=== PATIENT | male | born 1965 | race Caucasian/White ===

== ENCOUNTER 2018-09-06 05:59 | Day surgery (SDC) | payer BC ==
[2018-09-06] MEDS ORDERED: Ketamine HCl 50 MG/ML IJ ONE (06:00)
[2018-09-06] MEDS ORDERED: DIPRIVAN 200 MG/20 ML IV ONE (06:00)
[2018-09-06] MEDS ORDERED: Lactated Ringers 1,000 ML IV SCH (06:30)
[2018-09-06 08:14] VITALS: BP 143/81; PULSE 52; O2SAT 98
--- NOTE | 2018-09-06 12:52 | OP ---
SURGERY DATE/TIME: 09/06/2018 0700 PREOPERATIVE DIAGNOSIS: History of colon polyps. POSTOPERATIVE DIAGNOSIS: Normal colon. PROCEDURE: Colonoscopy. SURGEON: Dr. Hermosillo. ANESTHESIA: MAC. Medications given by anesthesia department. HISTORY: The patient is a 53 year-old white male presenting now for his second colonoscopy. He had one five years ago at which time a polyp was removed. The patient was reappraised of the risks of the procedure including the risk of perforation, phlebitis, untoward reaction to medication, bleeding and missed lesions. The patient verbalized his understanding and desired to have the procedure performed. DESCRIPTION OF PROCEDURE: The patient was given the medications by the anesthesia department. He had continuous pulse oximetry, ECG monitoring, intermittent blood pressure monitoring and tidal CO2 monitoring during the examination. He was placed in the left lateral decubitus position. A digital rectal examination was performed and revealed normal anal sphincter tone, no masses and normal prostate. The flexible Olympus pediatric colonoscope was used to intubate the rectum. A view of the colon was developed sequentially to the cecum. Upon insertion and withdrawal, including a retroflex view in the rectum, no mucosal lesions were encountered. The scope was removed from the patient who tolerated the procedure well and was sent back to OP recovery in good condition. The prep was noted to be fair to good.
== END 2018-09-06 08:12 | disposition home or self-care (01) ==
LOC: SDC 05:59
PROVIDERS: ATTEND Family Medicine
DX: Z12.11 Encounter for screening for malignant neoplasm of colon (principal); Z86.010 Personal history of colon polyps
CPT/HCPCS: J2704

== ENCOUNTER 2024-05-14 09:08 | Emergency (ER) | payer BC ==
--- NOTE | 2024-05-14 09:10 | ERPHSYRPT ---
- History of Present Illness Time Seen by Provider: 05/14/24 09:10 Historian: patient, family Exam Limitations: no limitations Physician History: This is a 59-year-old white male patient who presents by private vehicle accompanied by his spouse with sudden onset of left lower quadrant abdominal pain which radiates into his left groin. +/- Left flank pain. No associated nausea vomiting or diarrhea. Patient denies chest pain. Patient denies fever. Patient denies shortness of breath. Patient has never had this symptom before. He has had no prior history of abdominal surgeries. He has had a colonoscopy in the past. Patient has a history of hypothyroidism, hypertension and hyperlipidemia. Timing/Duration: today Activities at Onset: none Quality: sharpness, stabbing Abdominal Pain Onset Location: LLQ Pain Radiation: flank (+/- Left flank), groin (Groin) Severity of Pain-Max: moderate Severity of Pain-Current: moderate Modifying Factors: Improves With: nothing Associated Symptoms: denies symptoms Previous symptoms: no prior history, no recent treatment Allergies/Adverse Reactions: No Known Drug Allergies Allergy (Verified 05/14/24 09:12) Home Medications: Atorvastatin Calcium [Lipitor] 80 mg PO HS 09/01/18 [History] Levothyroxine Sodium [Synthroid] 50 mcg PO DAILY 09/01/18 [History] Metoprolol Tartrate [Lopressor] 100 mg PO DAILY 09/01/18 [History] Ezetimibe 10 mg [Zetia 10 MG] 10 mg PO DAILY 05/14/24 [History] Travel Risk - International Travel Have you traveled outside of the country in past 3 weeks: No - Emerging Infectious Disease Are you exhibiting symptoms associated with any current EIDs: No - Review of Systems Constitutional: No Symptoms Eyes: No Symptoms Ears, Nose, & Throat: No Symptoms Respiratory: No Symptoms Cardiac: No Symptoms Abdominal/Gastrointestinal: Abdominal Pain (Lower quadrant), No Nausea, No Vomiting, No Diarrhea, No Constipation Genitourinary Symptoms: Flank Pain (+/- Left flank pain), Other (Left lower quadrant pain radiates into the left groin) Musculoskeletal: No Symptoms Skin: No Symptoms Neurological: No Symptoms Psychological: No Symptoms Endocrine: No Symptoms Hematologic/Lymphatic: No Symptoms Immunological/Allergic: No Symptoms All Other Systems: Reviewed and Negative - Past Medical History Pertinent Past Medical History: Yes Neurological History: No Pertinent History ENT History: No Pertinent History Cardiac History: No Pertinent History Respiratory History: No Pertinent History Endocrine Medical History: Hypothyroidism Musculoskeletal History: No Pertinent History GI Medical History: No Pertinent History History: No Pertinent History Psycho-Social History: No Pertinent History Male Reproductive Disorders: No Pertinent History - Past Surgical History Past Surgical History: Yes Neuro Surgical History: No Pertinent History Cardiac: No Pertinent History Respiratory: No Pertinent History Gastrointestinal: No Pertinent History Genitourinary: No Pertinent History Musculoskeletal: No Pertinent History Male Surgical History: No Pertinent History Other Surgical History: Colonoscopy - Social History Smoking Status: Former smoker Exposure to second hand smoke: No Drug Use: none - Nursing Vital Signs Nursing Vital Signs: Initial Vital Signs Pulse Rate 56 L 05/14/24 09:17 Respiratory Rate 16 05/14/24 09:17 Blood Pressure 162/94 05/14/24 09:17 O2 Sat by Pulse Oximetry 100 05/14/24 09:17 Pain Scale Pain Intensity 10 - Physical Exam General Appearance: mild distress, alert, anxiety Eye Exam: PERRL/EOMI, eyes nml inspection Ears, Nose, Throat Exam: normal ENT inspection, moist mucous membranes Neck Exam: normal inspection, non-tender, supple, full range of motion Respiratory Exam: normal breath sounds, lungs clear, airway intact, No chest tenderness, No respiratory distress Cardiovascular Exam: regular rate/rhythm, normal heart sounds, normal peripheral pulses Gastrointestinal/Abdomen Exam: soft, normal bowel sounds, tenderness (Left lower quadrant), guarding (Left lower quadrant to palpation) Rectal Exam: not done Back Exam: normal inspection, normal range of motion, CVA tenderness (Left flank pain), No vertebral tenderness Extremity Exam: normal inspection, normal range of motion, pelvis stable Neurologic Exam: alert, oriented x 3, cooperative, regional geodetic advisor II-XII nml as tested, nml cerebellar function, nml station & gait, sensation nml Skin Exam: normal color, warm Lymphatic Exam: No adenopathy SpO2 Interpretation: normal O2 Delivery: Room Air - Course Nursing assessment & vital signs reviewed: Yes Ordered Tests: Active Orders 24 hr Category Date Time Status IV Insertion STAT Care 05/14/24 09:21 Active ABDOMEN AND PELVIS W/0 CONTRAS [CT] Stat Exams 05/14/24 11:39 Completed AMYLASE Stat Lab 05/14/24 10:04 Completed CBC W DIFF Stat Lab 05/14/24 10:04 Completed CMP Stat Lab 05/14/24 10:04 Completed CULTURE,URINE Stat Lab 05/14/24 13:01 Received LIPASE Stat Lab 05/14/24 10:04 Completed UA W/RFX UR CULTURE Stat Lab 05/14/24 13:01 Completed Medication Summary Generic Name Dose Route Start Last Admin Trade Name Mariah PRN Reason Stop Dose Admin Sodium Chloride 1,000 mls @ 999 mls/hr 05/14/24 12:50 05/14/24 12:56 Sodium Chloride 0.9% 1000 Ml IV 05/14/24 13:50 999 mls/hr .Q1H1M STA Administration Discontinued Medications Generic Name Dose Route Start Last Admin Trade Name Mariah PRN Reason Stop Dose Admin Hydromorphone HCl 1 mg 05/14/24 09:21 05/14/24 09:27 Hydromorphone 1 Mg/1ml Inj IV 05/14/24 09:22 1 mg STAT ONE Administration Hydromorphone HCl Confirm 05/14/24 09:26 Hydromorphone 1 Mg/1ml Inj Administered 05/14/24 09:27 Dose 1 mg .ROUTE .STK-MED ONE Hydromorphone HCl 1 mg 05/14/24 11:58 05/14/24 12:01 Hydromorphone 1 Mg/1ml Inj IV 05/14/24 11:59 1 mg STAT ONE Administration Hydromorphone HCl Confirm 05/14/24 12:00 Hydromorphone 1 Mg/1ml Inj Administered 05/14/24 12:01 Dose 1 mg .ROUTE .STK-MED ONE Hydromorphone HCl 1 mg 05/14/24 13:11 05/14/24 13:16 Hydromorphone 1 Mg/1ml Inj IV 05/14/24 13:12 1 mg STAT ONE Administration Hydromorphone HCl Confirm 05/14/24 13:15 Hydromorphone 1 Mg/1ml Inj Administered 05/14/24 13:16 Dose 1 mg .ROUTE .STK-MED ONE Sodium Chloride Confirm 05/14/24 12:55 Sodium Chloride 0.9% 1000 Ml Administered 05/14/24 12:56 Dose 1,000 mls @ ud .ROUTE .STK-MED ONE Ketorolac Tromethamine 30 mg 05/14/24 09:21 05/14/24 09:27 Ketorolac Tromethamine 30 Mg/Ml Inj IV 05/14/24 09:22 30 mg STAT ONE Administration Ketorolac Tromethamine Confirm 05/14/24 09:26 Ketorolac Tromethamine 30 Mg/Ml Inj Administered 05/14/24 09:27 Dose 30 mg .ROUTE .STK-MED ONE Ondansetron HCl 4 mg 05/14/24 09:21 05/14/24 09:27 Ondansetron Hcl 4 Mg/2 Ml Vial IV 05/14/24 09:22 4 mg STAT ONE Administration Ondansetron HCl Confirm 05/14/24 09:26 Ondansetron Hcl 4 Mg/2 Ml Vial Administered 05/14/24 09:27 Dose 4 mg .ROUTE .STK-MED ONE Tamsulosin HCl 0.4 mg 05/14/24 12:58 05/14/24 13:03 Tamsulosin Hcl 0.4 Mg Cap PO 05/14/24 12:59 0.4 mg STAT ONE Administration Tamsulosin HCl Confirm 05/14/24 13:02 Tamsulosin Hcl 0.4 Mg Cap Administered 05/14/24 13:03 Dose 0.4 mg .ROUTE .STK-MED ONE Lab/Rad Data: Laboratory Result Diagrams 05/14/24 10:04 05/14/24 10:04 Laboratory Results 05/14/24 05/14/24 05/14/24 Range/Units 13:01 10:04 10:04 WBC 9.4 H (4.23-9.07) x10^3/uL RBC 4.89 (4.63-6.08) x10^6/uL Hgb 15.8 (13.7-17.5) g/dL Hct 46.9 (40.1-51.0) % MCV 95.9 H (79.0-92.2) fL MCH 32.3 H (25.7-32.2) pg MCHC 33.7 (32.3-36.5) g/dL RDW 11.9 (11.6-14.4) % Plt Count 181 (163-337) x10^3/uL MPV 10.7 (9.4-12.4) fL Gran % 86.6 H (34.0-67.9) % Immature Gran % (Auto) 0.4 (0.001-0.429) % Nucleat RBC Rel Count 0.0 (0.00-0.2) % Eos # (Auto) 0.06 (0.04-0.54) x10^3/uL Immature Gran # (Auto) 0.04 H (0.001-0.031) x10^3u/L Absolute Lymphs (auto) 0.68 L (1.32-3.57) x10^3/uL Absolute Monos (auto) 0.42 (0.30-0.82) x10^3/uL Absolute Nucleated RBC 0.00 (0.00-0.012) x10^3u/L Lymphocytes % 7.3 L (21.8-53.1) % Monocytes % 4.5 L (5.3-12.2) % Eosinophils % 0.6 L (0.8-7.0) % Basophils % 0.6 (0.2-1.2) % Absolute Granulocytes 8.10 H (1.78-5.38) x10^3/uL Basophils # 0.06 (0.01-0.08) x10^3/uL Sodium 141 (135-145) mmol/L Potassium 3.4 L (3.5-5.1) mmol/L Chloride 111 H (98-107) mmol/L Carbon Dioxide 23 (22-30) mmol/L Anion Gap 10.3 (5-15) MEQ/L BUN 18 (9-20) mg/dL Creatinine 0.84 (0.66-1.25) mg/dL Estimated GFR 99.2 ML/MIN Glucose 165 H (74-106) mg/dL Calcium 8.7 (8.4-10.2) mg/dL Total Bilirubin 0.60 (0.2-1.3) mg/dL AST 33 (17-59) U/L ALT 39 (0-50) U/L Alkaline Phosphatase 63 (38-126) U/L Serum Total Protein 6.2 L (6.3-8.2) g/dL Albumin 3.6 (3.5-5.0) g/dL Amylase 77 (30-110) U/L Lipase 116 (23-300) U/L Urine Color Dark Yellow (Yellow) Urine Appearance Turbid A (Clear) Urine pH 5.0 (4.6-8.0) Ur Specific [place] >=1.030 A (1.005-1.030) Urine Protein 100 A (Negative) Urine Glucose (UA) Negative (Negative) mg/dL Urine Ketones Trace A (Negative) Urine Blood Large A (Negative) Urine Nitrite Negative (Negative) Urine Bilirubin Small A (Negative) Urine Urobilinogen 1.0 A (0.2) mg/dL Ur Leukocyte Esterase Trace A (Negative) U Hyaline Cast (Auto) 0-2 (0-2) /LPF Urine Microscopic RBC >100 A (0-5) /HPF Urine Microscopic WBC 0-2 (0-5) /HPF Ur Epithelial Cells Rare (None Seen) /HPF Uric Acid Crystals 3-5 A (None Seen) /HPF Amorphous Crystals Many A (None Seen) /HPF Urine Bacteria Moderate A (None Seen) /HPF Urine Culture Reflexed YES (NO) - Progress Progress: improved, pain not gone completely Progress Note: 05/14/24 09:31 My medical decision making of the assignment of moderate complexity is based on review of the patient's past medical history, review of the patient's medication list, review the patient drug allergy list, history present illness and physical findings on examination. The workup in this patient includes placement of a intravenous line, CBC, CMP, magnesium level, amylase, lipase, urinalysis, CT scan of the abdomen pelvis without contrast. In addition, we will provide the patient with intravenous Toradol, Zofran and Dilaudid. Differential diagnosis includes but is not limited to pyelonephritis, urete rolithiasis, diverticulitis, colitis, incarcerated left inguinal hernia 05/14/24 13:00 I interpreted the laboratory data results that have returned. We are still waiting for the urinalysis. Based on the blood work results that have returned, there is no acute, emergent medical issue. The CT scan of the abdomen pelvis without contrast was interpreted by the radiologist and I reviewed the impression. The impression states left 4.7 mm ureteral stone in the mid third region of the ureter. There is mild left hydroureteronephrosis 05/14/24 13:48 Urinalysis shows mild urinary tract infection. Counseled pt/family regarding: lab results, diagnosis, need for follow-up, rad results Medical Desision Making - Independent Historian Additional History obtained from: Spouse - Diagnostic Testing Diagnostic test were ordered, analyzed, and reviewed by me: Yes Radiological Interpretation: Reviewed by me, Teleradiologist Report - Risk of complications The pt has a mod risk of morbidity or mortality based on: Need for prescription drug management - Departure Departure Disposition: Home Clinical Impression: Left ureteral calculus, Urinary tract infection Condition: Stable Critical Care Time: No Referrals: MELBA FERRELL [employer]IVER [Primary Care Provider] - Follow up/PCP as directed Additional Instructions: Drink plenty of fluids. Take 600 mg of ibuprofen with food 3 times a day for the next 5 days. Take your other medications including the antibiotics as prescribed. You may return to the emergency department if pain symptoms worsen. However, recall we do not have a urologist at our facility. You have the option of going directly to a facility where there is a urologist if the pain suddenly worsens. If the pain is manageable with the regimen, you may contact a urologist of choice on 05/16/2024. Prescriptions: Hydrocodone/APAP 5/325 [[place] 5/325 mg] 1 each PO Q6H PRN PRN #10 tablet MDD 4 PRN Reason: Pain Ciprofloxacin [Cipro 500 MG] 500 mg PO BID #14 tablet Tamsulosin HCl 0.4 mg [Flomax 0.4 MG] 0.4 mg PO DAILY #7 cap
[2024-05-14] MEDS ORDERED: Zofran 4 MG/2 ML VIAL ONE (09:26)
[2024-05-14] MEDS ORDERED: Hydromorphone 1 mg/ml Injection ONE ×3 (09:26→13:15)
[2024-05-14] MEDS ORDERED: TORAdol 30 mg Injection ONE (09:26)
[2024-05-14] MEDS: Zofran 4 MG/2 ML VIAL IV ONE (09:27)
[2024-05-14] MEDS: TORAdol 30 mg Injection IV ONE (09:27)
[2024-05-14] MEDS: Hydromorphone 1 mg/ml Injection IV ONE ×3 (09:27→13:16)
[2024-05-14 10:29] LABS: BASOPHIL % 0.6 % (0.2-1.2); Basophil (Absolute #) 0.06 x10^3/uL (0.01-0.08); Eosinophil % 0.6 % (0.8-7.0); Eosinophil (Absolute #) 0.06 x10^3/uL (0.04-0.54); Hematocrit 46.9 % (40.1-51.0); Hemoglobin 15.8 g/dL (13.7-17.5); IMMATURE GRAN # 0.04 x10^3u/L (0.001-0.031); IMMATURE GRAN % 0.4 % (0.001-0.429); Lymphocyte (Absolute #) 0.68 x10^3/uL (1.32-3.57); Lymphocytes % 7.3 % (21.8-53.1); Mean Cell Volume 95.9 fL (79.0-92.2); Mean Corpuscular Hemoglobin 32.3 pg (25.7-32.2); Mean Corpuscular Hgb Concent. 33.7 g/dL (32.3-36.5); Mean Platelet Volume 10.7 fL (9.4-12.4); Monocyte (Absolute #) 0.42 x10^3/uL (0.30-0.82); Monocytes % 4.5 % (5.3-12.2); Neutrophil % 86.6 % (34.0-67.9); Platelet Count 181 x10^3/uL (163-337); Red Blood Count 4.89 x10^6/uL (4.63-6.08); Red Cell Distribution Width 11.9 % (11.6-14.4); White Blood Count 9.4 x10^3/uL (4.23-9.07)
[2024-05-14 10:45] LABS: ALBUMIN 3.6 g/dL (3.5-5.0); ANION GAP 10.3 MEQ/L (5-15); BILIRUBIN,TOTAL 0.6 mg/dL (0.2-1.3); Calcium 8.7 mg/dL (8.4-10.2); Creatinine 1 0.84 mg/dL (0.66-1.25); EST GLOMERULAR FILTRATION RATE 99.2 ML/MIN; Potassium 3.4 mmol/L (3.5-5.1); Total Protein 6.2 g/dL (6.3-8.2)
[2024-05-14 12:02] VITALS: BP 124/77
--- NOTE | 2024-05-14 12:54 | XRAY ---
CLINICAL HISTORY: LLQ ABD pain; left groin pain COMPARISON: No prior studies are available for comparison. TECHNIQUE: Non-contrast CT of the abdomen and pelvis was performed, with the following protocol: axial images, and reconstructed coronal and sagittal images. One of the following dose reduction techniques was utilized for this exam: Automated exposure control, adjustment of the mA and/or kV according to patient size, and use of iterative reconstruction. FINDINGS: Abdomen: Liver: Normal in size, shape, and density. No focal lesions, cysts, or masses were identified. Gallbladder and Biliary System: The gallbladder is normal in size and shape. No wall thickening, pericholecystic fluid, or gallstones were identified. Pancreas: Pancreatic head, body, and tail are visualized and appear normal in size and density. No pancreatic masses or calcifications were noted. Spleen: Normal in size, shape, and density. No splenic lesions or masses were identified. Appendix: Appendix appear unremarkable. Kidneys and Adrenal Glands: left middle third ureteric obstructing calculus measures 4.7 mm associated with mild left hydroureteronephrosis. Both kidneys are normal in size, shape, and position. Cortical thickness is within normal limits. No renal calculi or hydronephrosis. Adrenal glands are unremarkable. Abdominal Aorta and Vessels: The abdominal aorta and major branches are patent without evidence of an aneurysm or significant atherosclerosis. Pelvis: Urinary Bladder: Normal in contour and wall thickness. No intraluminal lesions. Prostate: Normal in size and contour. No masses or abnormal thickening. Seminal Vesicles: Normal appearance without abnormal enlargement or mass. Peritoneal and Retroperitoneal Structures: No free fluid or abnormal fluid collections were identified within the abdomen or pelvis. No lymphadenopathy was noted. Bowel: A small cecal colonic diverticulum is seen with no signs of diverticulitis noted. The visualized bowel loops are normal in caliber and appearance. No evidence of bowel obstruction or wall thickening. Bones and Soft Tissues: Pelvic bones and soft tissues are unremarkable. No fractures or abnormal masses were identified. IMPRESSION: 1. Left middle third ureteric obstructing calculus measures 4.7 mm associated with mild left hydroureteronephrosis. 2. A small cecal colonic diverticulum is seen with no signs of diverticulitis noted. [facility] ER was called at [phone] at 11:23 AM GAS DISPATCHER, 05/14/2024 and Vincent ([employer]UR[employer] TANK TENDER) was informed about the presence of significant medical findings. Electronically Signed by: John Toledo MD. (05/14/2024 12:49:17 EST)
[2024-05-14] MEDS ORDERED: Sodium Chloride 0.9% 1000 ML 1,000 ML ONE (12:55)
[2024-05-14] MEDS: Sodium Chloride 0.9% 1000 ML 1,000 ML IV STA (12:56)
[2024-05-14] MEDS ORDERED: Flomax 0.4 MG ONE (13:02)
[2024-05-14] MEDS: Flomax 0.4 MG PO ONE (13:03)
[2024-05-14 13:22] VITALS: PULSE 53; RESP 10; O2SAT 96
[2024-05-14 13:27] LABS: Appearance Turbid (Clear); Bilirubin Small (Negative); Blood Large (Negative); Epithelial Cells Rare /HPF (None Seen); Glucose, Urine Negative (Negative); Ketones Trace (Negative); Leukocyte Esterase Trace (Negative); Nitrite Negative (Negative); Protein,Urine Dip 100 (Negative); RBC >100 /HPF (0-5); Specific Gravity >=1.030 (1.005-1.030); WBC 0-2 /HPF (0-5)
[2024-05-14 13:41] LABS: Amourphous Crystal Many /HPF (None Seen); Bacteria Moderate /HPF (None Seen); Hyaline Casts 0-2 /LPF (0-2)
[2024-05-14] MEDS ORDERED: Levofloxacin 500 MG Tablet ONE (14:06)
[2024-05-14] MEDS: Levofloxacin 500 MG Tablet PO ONE (14:12)
== END 2024-05-14 14:25 | disposition home or self-care (01) ==
LOC: ED 09:08
DX: N13.2 Hydronephrosis with renal and ureteral calculous obstruction (principal); N39.0 Urinary tract infection, site not specified; R10.32 Left lower quadrant pain; I10 Essential (primary) hypertension; E78.5 Hyperlipidemia, unspecified; Z79.891 Long term (current) use of opiate analgesic; Z79.899 Other long term (current) drug therapy
CPT/HCPCS: 36415; 74176; 80053; 81001; 82150; 83690; 85025; 87086; 96374; 96375; 96376; 99284; J1171; J1885; J2405; A9270-GY